=== PATIENT | female | born 2005 | race Caucasian/White ===

== ENCOUNTER 2023-06-30 12:17 | Emergency (ER) | payer OTHER ==
[2023-06-30] MEDS ORDERED: Ketorolac Tromethamine 30 MG (1 mL) VIAL ONE (13:08)
[2023-06-30 13:22] LABS: Mononucleosis POSITIVE (NEGATIVE)
[2023-06-30 13:23] LABS: MONO NEGATIVE CONTROL ZONE White (Negative) (White); MONO POSITIVE CONTROL Pink Line (Positive) (PINK/RED)
[2023-06-30 13:30] LABS: BHCG - Serum Negative (NEGATIVE); Pregs Control Background? CLEAR/WHITE (CLR/WHITE); Pregs Control Bar Appear? YES (CONTROL BAR)
[2023-06-30 13:31] LABS: Hematocrit 41.9 % (34.9-44.5); Hemoglobin 13.7 g/dL (12.0-15.5); MDiff Complete? YES; Mean Corpuscular HGB CONC 32.7 g/dL (32.0-36.0); Mean Corpuscular Hemoglobin 29.5 pg (27.0-33.0); Mean Corpuscular Volume 90.3 fl (81.6-98.3); Mean Platelet Volume 10.9 fl (7.4-10.4); Platelet Count 206 10x3/uL (150-450); RBC Distribution Width 14.2 % (11.5-14.5); Red Blood Cell (RBC) Count 4.64 10x6/uL (3.90-5.03); White Blood Cell (WBC) Count 10.8 10x3/uL (3.5-10.5)
[2023-06-30 13:37] LABS: ALT (SGPT) 193 U/L (8-55); AST (SGOT) 99 U/L (5-30); Albumin 4.2 g/dL (3.5-5.0); Alkaline Phosphatase 146 U/L (40-100); Anion Gap 14 mmol/L (10-20); BUN (Urea Nitrogen) 7 mg/dL (8.4-21.0); Bilirubin, Total 0.9 mg/dL (0.2-1.2); Calc. Creatinine Clearance 0 mL/min (70-130); Carbon Dioxide 23 mmol/L (22-29); Chloride 106 mmol/L (98-107); Estimated GFR 107; Glucose 131 mg/dL (70-105); Potassium 3.9 mmol/L (3.5-5.1); Protein, Total 8.2 g/dL (6.0-8.3); Sodium 139 mmol/L (136-145)
[2023-06-30 13:39] LABS: Clarity Cloudy (Clear); Glucose, Urine (Dipstick) Unable to Interpret mg/dL (Negative); Ketone, Urine Unable to Interpret mg/dL (Negative); Leukocyte Unable to Interpret (Negative); Nitrite Unable to Interpret (Negative); Protein, Urine (Dipstick) Unable to Interpret mg/dl (Neg-Trace)
[2023-06-30 13:40] LABS: Bilirubin Unable to Interpret (Negative); Blood, Urine Unable to Interpret (Negative); Specific Gravity, Urine 1.015 (1.005-1.030); pH, Urine 6.5 (5.0-9.0)
[2023-06-30 13:43] LABS: Bacteria/HPF Rare-Few HPF (None Seen); CAUTI Indications for Culture Dysuria,urgency,freq; RBC/HPF Greater than 50 HPF (0-3)
[2023-06-30 13:45] LABS: Urine Culture Reflex No No
[2023-06-30 13:54] LABS: Influenza A by NAA Not Detected (NotDetected); Influenza B by NAA Not Detected (NotDetected); SARS-CoV-2 NAA Rapid Test DETECTED (NotDetected)
[2023-06-30 13:58] LABS: Lymphocytes 35 % (28-48); Monocytes 6 % (0-4); Neutrophil 45 % (31-61); Reactive Lymphocytes 14 % (0-10)
[2023-06-30 13:59] LABS: Platelet Adequacy Comment Appears Adequate; RBC Morph Comment Within Normal Limits
[2023-06-30] MEDS ORDERED: Dexamethasone 10 MG/ML VIAL ONE (14:16)
== END 2023-06-30 14:25 | disposition home or self-care (01) ==
LOC: CSHERS 12:17
DX: U07.1 COVID-19 (principal); B27.90 Infectious mononucleosis, unspecified without complication
CPT/HCPCS: 36415; 80053; 81001; 83605; 84703; 85025; 86308; 87040; 87081; 87430; 96374; 96375; J1100; J1885

== ENCOUNTER 2024-03-06 08:35 | Emergency (ER) | payer OTHER ==
[2024-03-06] MEDS ORDERED: Ondansetron PF 4 MG/2 ML Vial ONE ×2 (08:57→10:05)
[2024-03-06 09:23] LABS: #Basophils 0.02 10x3/uL (0.0-0.2); #Eosinophils 0.08 10x3/uL (0.0-0.5); #Monocytes 0.17 10x3/uL (0.0-1.1); #Neutrophils 5.06 10x3/uL (1.5-8.4); %Basophils 0.3 % (0.0-2.0); %Eosinophils 1.3 % (0.0-6.0); %Lymphocytes 12.8 % (18.0-47.0); %Monocytes 2.8 % (0.0-10.0); %Neutrophils 82.2 % (40.0-75.0); Hematocrit 39.2 % (34.9-44.5); Hemoglobin 13.1 g/dL (12.0-15.5); Mean Corpuscular HGB CONC 33.4 g/dL (32.0-36.0); Mean Corpuscular Hemoglobin 29.8 pg (27.0-33.0); Mean Corpuscular Volume 89.3 fL (81.6-98.3); Mean Platelet Volume 10.9 fL (7.4-10.4); Platelet Count 240 10x3/uL (150-450); RBC Distribution Width 13.2 % (11.5-14.5); Red Blood Cell (RBC) Count 4.39 10x6/uL (3.90-5.03); White Blood Cell (WBC) Count 6.2 10x3/uL (3.5-10.5)
[2024-03-06 09:31] LABS: BHCG - Serum Negative (NEGATIVE); Pregs Control Background? CLEAR/WHITE (CLR/WHITE); Pregs Control Bar Appear? YES (CONTROL BAR)
[2024-03-06 09:37] LABS: ALT (SGPT) 20 U/L (8-55); AST (SGOT) 18 U/L (5-34); Albumin 4.8 g/dL (3.5-5.0); Alkaline Phosphatase 47 U/L (40-100); Anion Gap 16 mmol/L (10-20); BUN (Urea Nitrogen) 9 mg/dL (7.0-18.7); Bilirubin, Total 0.9 mg/dL (0.2-1.2); Calc. Creatinine Clearance 0 mL/min (70-130); Carbon Dioxide 21 mmol/L (22-29); Chloride 105 mmol/L (98-107); Estimated GFR 115; Globulin 3.4 g/dL (2.4-3.5); Glucose 112 mg/dL (70-105); Potassium 3.6 mmol/L (3.5-5.1); Protein, Total 8.2 g/dL (6.0-8.3); Sodium 138 mmol/L (136-145)
== END 2024-03-06 10:36 | disposition home or self-care (01) ==
LOC: CSHERS 08:35
DX: R11.10 Vomiting, unspecified (principal)
CPT/HCPCS: 80053; 84703; 85025; 96361; 96374; 96376; J2405